=== PATIENT | male | born 1945 | race Two or more races ===

== ENCOUNTER 2024-04-07 08:20 | Outpatient (CLI) | payer OTHER ==
[~2024-04-07 08:20] MED LIST: AMBIEN10 MG PO; AVALIDE; LUNESTA2 MG PO
== END 2024-04-07 08:30 | disposition home or self-care (01) ==
LOC: RAD 08:20
PROVIDERS: ATTEND Orthopaedic Surgery
DX: M48.061 Spinal stenosis, lumbar region without neurogenic claudication (principal); M54.16 Radiculopathy, lumbar region

== ENCOUNTER 2024-05-16 07:47 | Outpatient (CLI) | payer OTHER | END 2024-05-16 07:56 | disposition home or self-care (01) | LOC: RAD 07:47 | PROVIDERS: ATTEND Physical Medicine & Rehabilitation | DX: M17.0 Bilateral primary osteoarthritis of knee (principal) ==

== ENCOUNTER 2024-06-06 07:58 | Inpatient (IN) | payer OTHER ==
[~2024-06-06] VITALS: Ht 170.2 cm; Wt 136.1 kg
[2024-06-06] MEDS ORDERED: MIDAZOLAM HCL/PF 5 MG/ML VIAL IV ONE (08:20)
[2024-06-06] MEDS ORDERED: NOREPINEPHRINE BITARTRATE 1 MG/ML AMPUL IV ONE ×3 (08:22→18:20)
[2024-06-06] MEDS ORDERED: NOREPINEPHRINE BITARTRATE 1 MG/ML AMPUL IV SCH (08:45)
[2024-06-06] MEDS ORDERED: PROPOFOL 10,000 MCG/ML VIAL IV PUSH ONE (08:45)
[2024-06-06 08:53] LABS: HEMATOCRIT 34.5 % (39.0-48.0); HEMOGLOBIN 11.3 g/dL (13-16.00); MEAN CELL VOLUME 98.7 fL (80.0-100.00); MEAN CORPUSCULAR HEMOGLOBIN 32.3 pg (27.00-32.0); MEAN CORPUSCULAR HGB CONC 32.7 g/dl (32.0-36.0); RED BLOOD COUNT 3.49 M/uL (4.00-6.00)
[2024-06-06 08:58] LABS: PLATELET COUNT 496 K/uL (150-450)
[2024-06-06 09:14] LABS: INR 1.23; PARTIAL THROMBOPLASTIN TIME 22.3 SECONDS (22.0-34.0); PROTHROMBIN TIME 13.2 SECONDS (9.0-11.5)
[2024-06-06] MEDS ORDERED: 0.9 % SODIUM CHLORIDE 1,000 ML IV STA (09:15)
--- NOTE | 2024-06-06 09:29 | NUR ---
SE RECIBE PACIENTE MASCULINO INCONSCIENTE Y SE OBSERVA CON DIFICULTAD RESPIRATORIA. SE COLOCA EN AREA DE CRITICO EN LA CAMA #1, SE COMIENZA LA CLAVE, SE CONECTA A MONITOR CARDIACO Y SE COMIENZA A RICK LAS VENTILACIONES CON EL RESUCITADOR MANUAL, SE PALPA PULSO CAROTIDEO POR EL EL CUAL PRESENTA PULSO EN 97. SE COMIENZA A ENTUBAR EL PACIENTE POR EL CUAL NO SE PUDO. SE REALIZA VENOPUNCION POR EN BRAZO MIKALA CON ANGIO #20 Y SE LE COLOCA 0.9 NSS 1,000 BAJANDO A FULL DRIP Y SEGUNDA VENOPUNCION EN BRAZO MIKALA Y SE LE COLOCA H/L PATENTE ILA DE EDEMA Y ENROJECIMIENTO. EL DOCTOR ORDENA VERSED DE 5MG IV Y SE ADMINISTRA IV PUSH. SE CONTINUA DANDO VENTILACIONES. SE LLAMA A PERSONAL DE ANESTESIA MISS. Sonia YU VERBALIZA ADMINISTRAR PROPOFOL 5ML IV, SE ADMINISTRA IV PUSH. SE VUELVE ADMISNISTRAR PROPOFOL 5ML IV, SE ADMINISTRA IV PUSH. SE PROCEDE A ENTUBAR POR LA ANESTECISTA CON TUBO #7 Y FIJO EN 23. SE ORDENA LEVOPHED 8MG/250ML EN D/W 5% BAJANDO A 50ML/HR. SE INTRODUCE TUBO NASOGATRICO #18 EN FOSA NASAL DERECHA A SUCCION INTERMITENTE Y SE LE INSERTA NUNEZ #16 CON MEDIDAS ASEPTICAS Y ESTERILES, SE OBSERVA ORINA CON AMARILLO OSCURO. SE CONECTA A VENTILADOR MECANICO CON LOS PARAMETROS: MODE- A/C, VT- 500, RR- 14, PEEP- 5 Y EL FI02- 100%. SE OBSERVA POR CAMBIOS.
[2024-06-06 09:45] LABS: URINE APPEARANCE Cloudy; URINE BILIRRUBIN Small (NEGATIVE); URINE BLOOD Trace; URINE COLOR Orange; URINE KETONE Negative (NEGATIVE); URINE LEUKOCYTE Trace; URINE NITRATE Negative
[2024-06-06 09:50] LABS: URINE BACTERIA 46.5 uL (0.0-1933); URINE CAST 8.98 uL (0.0-1.40); URINE EPITHELIAL CELLS 35.7 uL (0.0-38.8); URINE RBC 19.8 uL (0.0-20.8)
[2024-06-06 10:02] LABS: ALBUMIN 2.7 gm/dL (3.4-5.0); BILIRUBIN TOTAL 0.98 mg/dL (0.3-1.2); CREATININE SERUM 3.11 mg/dL (0.70-1.30); GFR 19.56; GLOBULINA 3.4 G/DL (2.4-3.5); POTASSIUM 4.67 mEq/L (3.5-5.1); TOTAL PROTEIN 6.1 gm/dL (6.4-8.2)
[2024-06-06 10:10] LABS: URINE GLUCOSE 100 MG/DL (NEGATIVE); URINE PROTEIN 100 (NEGATIVE); URINE WBC 1.5 uL (0.0-23.2)
[2024-06-06 10:12] LABS: URINE CRYSTALS MODERATE /HPF
[2024-06-06] MEDS ORDERED: NOREPINEPHRINE BITARTRATE 8 MG in DEXTROSE 5 % IN WATER 250 ML IV SCH (11:00)
[2024-06-06] MEDS ORDERED: MIDAZOLAM HCL 50 MG in 0.9 % SODIUM CHLORIDE 50 ML IV SCH (11:00)
[2024-06-06 11:44] LABS: ABG PO2 206.6 mmHg (80-100); BASE EXCESS -11.3 mmol/l; SaO2 98.9 %; Tco2 24.8 mmol/l
[2024-06-06 11:51] LABS: ABG PH 7.005 (7.35-7.45); ABG pCO2 90.2 mmHg (35-45); allen test SATISFACTORY; o2 100 %; puncture site RADIAL RIGHT
[2024-06-06 15:08] LABS: ABG PO2 131.7 mmHg (80-100); BASE EXCESS -7.8 mmol/l; BICARBONATE 23.2 mmol/l (23-25); SaO2 97.2 %; Tco2 25.5 mmol/l
[2024-06-06 16:13] LABS: ABG PH 7.114 (7.35-7.45); ABG pCO2 73.9 mmHg (35-45); allen test SATISFACTORY; o2 80 %; puncture site RADIAL RIGHT
--- NOTE | 2024-06-06 16:25 | NUR ---
SE RECIBE PTE EN CAMA #1 DE UNIDAD DE CRITICO, PTE CONECTADO A MONITOR CARDIACO CON OXIMETRIA CONTINUA. PTE CON TUBO ENDOTRAQUEAL 7.0 COLOCADO Y CONECTADO A VT MECANICON CON LOS SIGUIENTES PARAMETROS:MODO AC, VT 550, O2 80%, PEEP 5, RR 20/MIN. PTE CON TUBO NGT COLOCADO EN FOSSA DERECHA CONECTADO A SUCCION INTERMITENTE. PTE CON H/L X3 COLOCADOS LIBRES DE EDEMA, PTE CON DRIP DE LEVOPHED 8MG/250ML BAJANDO A50ML/HR, DRIP DE VERSED 50MG/50ML DE 0.9NSS BAJANDO A 3ML/HR Y IV FLUIDS DE 0.9NSS 1000ML BAJANDO A 250ML/HR. PTE SE OBSERVA CON ABDOMEN DISTENDIDO AL MOMENTO. SE OBSERVA NUNEZ COLOCADO BAJANDO A GRAVEDAD. PTE CON ESTUDIOS DE CT PENDIENTES A REALIZAR, SE NOTIFICA ESTUDIO CT. PTE CONSULTADO CON MEDICINA INTERNA. SE MIDEN S/V A PTE Y SE DOCUMENTAN. PTE SE CONTINUA MONITORIANDO POR CAMBIOS.
[2024-06-06] MEDS ORDERED: PANTOPRAZOLE SODIUM 40 MG/VIAL VIAL IV PUSH ONE (16:45)
[2024-06-06] MEDS ORDERED: PANTOPRAZOLE SODIUM 80 MG in 0.9 % SODIUM CHLORIDE 100 ML IV SCH (16:45)
[2024-06-06] MEDS ORDERED: 0.9 % SODIUM CHLORIDE 1,000 ML IV ONE ×2 (16:45)
[2024-06-06] MEDS ORDERED: MEROPENEM 500 MG/VIAL VIAL IV SCH (17:00)
[2024-06-06] MEDS ORDERED: LINEZOLID IN DEXTROSE 5% 300 ML IV SCH (17:00)
[2024-06-06] MEDS ORDERED: 0.9 % SODIUM CHLORIDE 1,000 ML IV SCH (17:00)
[2024-06-06 18:08] LABS: INR 1.31
[2024-06-06 18:10] LABS: D DIMER 3.83 MG/L; PARTIAL THROMBOPLASTIN TIME 34.7 SECONDS (22.0-34.0)
[2024-06-06 20:12] LABS: ABG PO2 101.9 mmHg (80-100); BASE EXCESS -8.9 mmol/l; BICARBONATE 20.8 mmol/l (23-25); SaO2 94.9 %; Tco2 22.7 mmol/l
[2024-06-06 21:05] VITALS: BP 115/50; O2SAT 100
[2024-06-06 21:43] LABS: ABG PH 7.151 (7.35-7.45)
[2024-06-06 21:44] LABS: ABG pCO2 61.1 mmHg (35-45); allen test SATISFACTORY; o2 70 %; puncture site RADIAL RIGHT
[2024-06-06 22:00] VITALS: BP 113/58; O2SAT 100
[2024-06-06 23:28] VITALS: BP 101/60; O2SAT 99
[2024-06-07] VITALS (8 sets, daily range): BP systolic 49–120; BP diastolic 13–65; O2SAT 83–100
[2024-06-07] MEDS ORDERED: CHLORHEXIDINE GLUCONATE 15ML BRUSH KIT MM SCH (01:00)
[2024-06-07] MEDS ORDERED: POLYVINYL ALCOHOL 15 ML DROPS OP SCH (09:00)
== END 2024-06-07 09:47 | disposition expired | DRG 947 ==
LOC: ER 07:59 → ICU-2 18:42 → ICU 18:42
PROVIDERS: General Practice; ADMIT Internal Medicine; ATTEND Internal Medicine
PROC: 4A033R1 Measurement of Arterial Saturation, Peripheral, Percutaneous Approach (ICD-10-PCS; principal; 2024-06-06)
PROC: 0BH17EZ Insertion of Endotracheal Airway into Trachea, Via Natural or Artificial Opening (ICD-10-PCS; 2024-06-06)
PROC: 5A1935Z Respiratory Ventilation, Less than 24 Consecutive Hours (ICD-10-PCS; 2024-06-06)
PROC: BW25ZZZ Computerized Tomography (CT Scan) of Chest, Abdomen and Pelvis (ICD-10-PCS; 2024-06-06)
PROC: B020ZZZ Computerized Tomography (CT Scan) of Brain (ICD-10-PCS; 2024-06-06)
PROC: 5A12012 Performance of Cardiac Output, Single, Manual (ICD-10-PCS; 2024-06-06)
DX: R18.8 Other ascites (principal); A41.9 Sepsis, unspecified organism; I50.21 Acute systolic (congestive) heart failure; J18.9 Pneumonia, unspecified organism; R65.21 Severe sepsis with septic shock; K25.5 Chronic or unspecified gastric ulcer with perforation; N17.9 Acute kidney failure, unspecified; R65.10 Systemic inflammatory response syndrome (SIRS) of non-infectious origin without acute organ dysfunction; J90 Pleural effusion, not elsewhere classified; E87.29 Other acidosis; I46.9 Cardiac arrest, cause unspecified; K74.60 Unspecified cirrhosis of liver